=== PATIENT | female | born 1965 | race African-American/Black ===

== ENCOUNTER 2016-07-09 09:35 | Emergency (ER) | payer OTHER ==
[~2016-07-09] VITALS: Ht 167.6 cm; Wt 90.0 kg
[2016-07-09] MEDS ORDERED: KETOROLAC 30MG/ML VIAL IV ONE (10:15)
[2016-07-09 10:47] VITALS: BP 165/108
== END 2016-07-09 12:28 | disposition home or self-care (01) ==
LOC: ER 09:42
DX: S89.91XA Unspecified injury of right lower leg, initial encounter (principal); V03.10XA Pedestrian on foot injured in collision with car, pick-up truck or van in traffic accident, initial encounter; Y93.01 Activity, walking, marching and hiking; Y92.414 Local residential or business street as the place of occurrence of the external cause; F12.90 Cannabis use, unspecified, uncomplicated; R03.0 Elevated blood-pressure reading, without diagnosis of hypertension
CPT/HCPCS: 29505; 73562; 73590; 96374; 99284; J1885